=== PATIENT | female | born 1945 | race African-American/Black ===

== ENCOUNTER → 2016-11-13 18:10 | Emergency (ER) | payer MEDICARE ==
[2016-11-13 17:22] LABS: URINE APPEARANCE CLOUDY; URINE BILIRUBIN NEGATIVE (NEG); URINE BLOOD MODERATE (NEG); URINE COLOR YELLOW; URINE GLUCOSE (UA) NEGATIVE (NEG); URINE KETONE NEGATIVE (NEG); URINE LEUKOCYTE ESTERASE POSITIVE (NEG); URINE NITRITE NEGATIVE (NEG); URINE PROTEIN SMALL (NEG)
[2016-11-13 17:30] LABS: URINE EPITHELIAL CELLS 0-2 /[HPF] (0-10); URINE WBC 25-30 /[HPF] (0-5)
[~2016-11-13 18:10] MED LIST: 24 HOUR ALLER15.8 ML; ACTOS15 MG; ACTOS15 MG PO; ADULT ASPIRIN81 MG PO; ADULT LOW DOSE81 MG PO; ALBUTEROL SULF8.5 G1 IH; ALBUTEROL17 GM INH; ALDACTONE25 M1 PO; ALLERGY10 M2 PO; ALLERGY10 MG PO; ALLERGY25 MG PO; AMBIEN PAK10 MG; AMBIEN10 M1 PO; AMBIEN10 MG PO; AMBIEN5 MG PO; AMLODIPINE BESY10 MG PO; ANEXSIA 5/325 M1 TAB PO; ASPIRIN81 M1 PO; AVAPRO300 MG; BAYER CHEWABLE81 M2 PO; BETAPACE AF80 MG PO; BETAPACE80 M2 PO; BROVANA15 MCG/2 M IH; CALCITRATE + V1 EAC1 PO; CALCITRATE + V1 EACH PO; CALCIUM 500 WIT1 TAB; CALCIUM 500 WIT1 TAB PO; CALCIUM WITH VI1 TAB; CALTRATE 600 +1 EAC3 PO; CARDURA XL8 MG PO; CARDURA2 M2 PO; CARDURA8 M1 PO; CARDURA8 MG; CARDURA8 MG PO; CATAPRES0.2 MG; CATAPRES0.2 MG PO; CHLORHEXIDINE MM; CHLORHEXIDINE473 ML MM; CINNAMON500 M1 PO; CIPRO500 M2 PO; CLARINEX5 M1 PO; CLARITIN10 MG; CLEOCIN T60 GM TP; CLONAZEPAM0.5 MG; COUMADIN3 MG PO; COUMADIN4 MG PO; COZAAR100 M1 PO; CYMBALTA20 MG; CYMBALTA20 MG PO; CYMBALTA60 M1 PO; CYMBALTA60 MG PO; DEXILANT60 MG PO; DIFLUCAN100 MG PO; DIOVAN320 MG PO; DITROPAN5 MG PO; DULCOLAX STOOL100 M1 PO; EC ASPIRIN325 MG PO; EFFER-K 20 MEQ20 MEQ PO; ELIQUIS5 M1 PO; FERRETTS PO; FISH OIL 1,0001 CA1 PO; FLEXERIL10 MG PO; FLONASE ALLERG9.9 ML; FUROSEMIDE40 M1 PO; FUROSEMIDE40 M2 PO; FUROSEMIDE80 MG; GABAPENTIN300 M1 PO; GABAPENTIN600 MG; GARLIC1 EAC1 PO; GLUCOSAMIN-CHO1 EACH PO; GLUCOSAMINE500 MG PO; HUMALOG; HYDROCHLOROTHIA25 MG; HYDROCHLOROTHIA25 MG PO; HYDROCODON-ACE1 EA15 PO; HYDROCODONE/APA1 CAP; HYDROCODONE/APA1 TAB PO; IBUPROFEN800 MG PO; IMDUR30 MG PO; IRON SULFATE; IRON325 ( 65 ); IRON325 M1 PO; ISOSORBIDE MONO30 M4 PO; ISOSORBIDE MONO30 MG PO; K-DUR20 ME1 PO; KEFLEX500 M1 PO; KEPPRA500 M2 PO; KEPPRA750 M2 PO; KEPPRA750 MG PO; LANTUS100 U/ML; LANTUS100 U/ML SC; LANTUS100 UNITS/ SC; LASIX20 MG PO; LASIX40 M1 PO; LASIX40 MG; LIPITOR20 MG; LONITEN10 MG PO; LOSARTAN POTAS100 MG PO; LYRICA150 MG; MACROBID 100 M100 M1 PO; MAGNESIUM27 MG; MEDROL4 M2 PO; MULTI VITAMIN1 EAC1 PO; MULTIVITAMIN W/1 CAP; MULTIVITAMIN1 TAB PO; MULTIVITAMINS1 EAC7 PO; NORCO 5/325 TAB1 TAB PO; NORCO 5/3251 TA1 PO; NORCO 5/3251 TAB PO; NORVASC PO; NORVASC10 M2 PO; NORVASC10 MG PO; OMEGA 3 FISH O1 EACH PO; OMEGA 3 FISH1 CAP.EC PO; OMEGA 31 CAP PO; OMEPRAZOLE20 M3 PO; OMEPRAZOLE20 MG PO; OXYBUTYNIN CHLOR5 M2 PO; OXYBUTYNIN CHLOR5 MG PO; OYSCO 500+D TAB1 TAB PO; PERIDEX480 ML MM; PLAVIX75 MG; POLYETHYLENE G255 G1 PO; POTASSIUM CHL; POTASSIUM CHLO20 ME3 PO; POTASSIUM CHLO20 MEQ; PRILOSEC20 M1 PO; PRILOSEC20 MG; PRILOSEC20 MG PO; PRILOSEC40 MG; PRILOSEC40 MG PO; PRIMIDONE50 MG; PROMETHAZINE-C118 ML PO; PROPAFENONE HC150 MG PO; PROVENTIL HFA6.7 GM IH; PULMICORT0.5 MG/21 IH; PYRIDIUM200 M2 PO; Q-DRYL25 M1 PO; Q-DRYL25 MG PO; QUALAQUIN; QUININE SULFAT324 MG; QUININE SULFAT324 MG PO; QUININE SULFAT325 MG; RYTHMOL PO; RYTHMOL225 MG PO; SENNA-S TABLET1 TAB PO; SENNA8.6 M PO; SENNOSIDES-DOC1 EAC1 PO; SENNOSIDES-DOC1 EACH PO; SLOW-MAG64 MG; SOTALOL80 MG PO; SPIRIVA18 MCG IH; SPIRONOLACTONE25 MG PO; TIZANIDINE HCL2 MG PO; TOPAMAX50 MG; TRAMADOL HCL50 MG PO; TRICOR145 M1; TRICOR145 MG; TYLENOL325 M2 PO; VERAMYST10 GM NS; VITAMIN C PO; VITAMIN C500 M3 PO; WARFARIN SODIUM3 MG PO; ZANAFLEX4 M PO; ZETIA10 M1 PO; ZETIA10 MG PO; ZITHROMAX250MG Z-PAK PO; ZOLPIDEM TARTRA10 M2 PO; [UNRECOGNIZED DRUG - OTHER] PO; [UNRECOGNIZED DRUG - OTHER] PO; [UNRECOGNIZED DRUG - OTHER] TP; [UNRECOGNIZED DRUG - REMARK]
== END ==
LOC: EDMED 18:10
PROVIDERS: Emergency Medicine
DX: N30.00 Acute cystitis without hematuria (principal)